=== PATIENT | male | born 1990 | race Caucasian/White ===

== ENCOUNTER 2020-11-16 21:09 | Emergency (ER) | payer OTHER, SELFPAY ==
[2020-11-16 21:26] VITALS: BP 143/79; PULSE 68; RESP 16; TEMP 36.6; O2SAT 97; BMI 24.4
== END 2020-11-17 01:43 | disposition left against medical advice (07) ==
PROVIDERS: Emergency Provider Emergency Medicine; PCP Internal Medicine
DX: R10.13 Epigastric pain (principal)
CPT/HCPCS: 99281; 99282